=== PATIENT | male | born 1980 | race Caucasian/White ===

== ENCOUNTER 2024-10-21 10:53 | Outpatient (OUT) | payer BC, SELFPAY ==
--- NOTE | 2024-10-21 11:05 | XR_ITS ---
The [address] [address] Patient Name: KUMAR HUTSON MRN: [id number] date: 1980 Sex: M Assigned Patient Location: RAD Current Patient Location: [facility] Accession/Order Number: [id number] Exam Date: 10/21/2024 11:10 Report Date: 10/21/2024 12:58 At the request of: JULISA FERRARO Procedure: XR shoulder LT min 2V PROCEDURE: XR shoulder LT min 2V HISTORY: Left Shoulder Pain With Radiation, Neck Pain COMPARISON: XR chest 08/29/2020 FINDINGS: BONES:No fracture, acute abnormality, or significant arthropathy. SOFT TISSUES:No visible soft tissue swelling. EFFUSION:None visible. OTHER: Negative. XR/XR shoulder LT min 2V IMPRESSION: 1. No acute bone abnormality or significant degenerative joint disease. Electronically authenticated by: JULIAN HURLEY Date: 10/21/2024 12:58
--- NOTE | 2024-10-21 11:05 | XR_ITS ---
The [address] [address] Patient Name: KUMAR HUTSON MRN: [id number] date: 1980 Sex: M Assigned Patient Location: [facility] Current Patient Location: [facility] Accession/Order Number: [id number] Exam Date: 10/21/2024 11:10 Report Date: 10/21/2024 12:57 At the request of: JULISA FERRARO Procedure: XR cervical spine 5V EXAMINATION: XR cervical spine 5V HISTORY: Left Shoulder Pain With Radiation, Neck Pain COMPARISON: No relevant comparison available. FINDINGS: BONES: No significant spondylosis, scoliosis, fracture, or visible bony lesion. DISC SPACES: C5-6 mild disc space narrowing and uncovertebral joint spurring resulting in moderate foraminal narrowing. PARASPINOUS: Negative. No paraspinous abnormality is seen. OTHER: Negative. XR/XR cervical spine 5V IMPRESSION: 1. C5-6 moderate degenerative changes which may contribute to patient's symptoms. Consider MRI for further evaluation. Electronically authenticated by: JULIAN HURLEY Date: 10/21/2024 12:57
== END 2024-10-21 10:54 | disposition home or self-care (01) ==
LOC: RAD 10:57
PROVIDERS: PCP Family Medicine; Visit Provider Nurse Practitioner
DX: M25.512 Pain in left shoulder (principal); M54.2 Cervicalgia
CPT/HCPCS: 72050; 73030